=== PATIENT | male | born 1970 | race Caucasian/White ===

== ENCOUNTER 2018-09-01 10:14 | Emergency (ER) | payer MEDICAID ==
[~2018-09-01] VITALS: Ht 175.3 cm; Wt 90.0 kg
[2018-09-01 10:19] VITALS: Ht 175.3 cm; Wt 90.0 kg
[2018-09-01] MEDS ORDERED: CHLO25TA2 PO (11:38)
[2018-09-01] MEDS ORDERED: AMLO5TAB4 PO (11:38)
--- NOTE | 2018-09-01 11:56 | ERD ---
ER Documentation Chief Complaint Chief Complaint sent by pcp - kidney problem - lab work ; feels nauseous HPI 48-year-old male was referred to the emergency department after he had abnormal blood tests. According to the patient, routine blood tests demonstrated kidney problems. Patient has no specific complaints at this time including no shortness of breath, weakness or any other complaints. ROS All systems reviewed and are negative except as per history of present illness. Medications Home Meds Reported Medications Amlodipine Besylate* (Norvasc*) 5 Mg Tablet, 5 MG PO DAILY, TAB 09/01/18 Chlorthalidone* (Chlorthalidone*) 25 Mg Tablet, 25 MG PO DAILY, TAB 09/01/18 Allergies Allergies: Coded Allergies: No Known Allergy (Unverified , 09/25/14) PMhx/Soc History of Surgery: No Anesthesia Reaction: No Hx Neurological Disorder: No Hx Respiratory Disorders: No Hx Cardiac Disorders: No Hx Psychiatric Problems: No Hx Miscellaneous Medical Probl: No (NO KNOWN MEDICAL CONDITION) Hx Alcohol Use: Yes Hx Substance Use: No Hx Tobacco Use: No Smoking Status: Never smoker FmHx Noncontributory for chief complaint Physical Exam Vitals Vital Signs Date Temp Pulse Resp B/P (MAP) Pulse Ox O2 O2 Flow FiO2 Time Delivery Rate 09/01/18 99.1 99 19 193/122 98 10:19 (145) Physical Exam GENERAL: The patient is well developed and appropriate for usual state of health in no apparent distress HEENT: Pupils equal, round, and reactive to light. EOMI. There is no scleral icterus. NECK: C-spine is soft and supple, there is no meningismus. There is no cervical lymphadenopathy. LUNGS: Clear to auscultation bilaterally. There are no rales, wheezes or rhonchi. HEART: Regular rate and rhythm, no murmurs, clicks, rubs or gallops. ABDOMEN: Soft, non-tender, non-distended. There are bowel sounds in all four quadrants. No rebound or guarding. EXTREMITIES: There is no peripheral cyanosis or edema. No focal swelling or erythema. NEURO: The patient moves all four extremities with 5/5 strength. Cranial nerves II - XII are intact. Normal gait. Alert and oriented SKIN: There is no apparent rash or petechiae. HEME/LYMPHATIC: There is no evidence of excessive bruising or lymphedema. PSYCHIATRIC: The patient does not appear anxious or depressed. Result Diagram: 09/01/18 1055 09/01/18 1055 Results 24 hrs Laboratory Tests Test 09/01/18 10:55 09/01/18 11:00 White Blood Count 11.0 10^3/ul Red Blood Count 4.31 10^6/ul Hemoglobin 12.9 g/dl Hematocrit 37.6 % Mean Corpuscular Volume 87.2 fl Mean Corpuscular Hemoglobin 29.9 pg Mean Corpuscular Hemoglobin Concent 34.3 g/dl Red Cell Distribution Width 11.6 % Platelet Count 423 10^3/UL Mean Platelet Volume 9.0 fl Immature Granulocytes % 0.400 % Neutrophils % 76.2 % Lymphocytes % 10.6 % Monocytes % 7.7 % Eosinophils % 4.6 % Basophils % 0.5 % Nucleated Red Blood Cells % 0.0 /100WBC Immature Granulocytes # 0.040 10^3/ul Neutrophils # 8.4 10^3/ul Lymphocytes # 1.2 10^3/ul Monocytes # 0.9 10^3/ul Eosinophils # 0.5 10^3/ul Basophils # 0.1 10^3/ul Nucleated Red Blood Cells # 0.0 10^3/ul Sodium Level 142 mmol/L Potassium Level 3.5 mmol/L Chloride Level 96 mmol/L Carbon Dioxide Level 33 mmol/L Anion Gap 13 Blood Urea Nitrogen 41 mg/dl Creatinine 3.67 mg/dl Est Glomerular Filtrat Rate mL/min 18 mL/min Glucose Level 105 mg/dl Calcium Level 9.2 mg/dl Urine Color YELLOW Urine Clarity CLEAR Urine pH 7.0 Urine Specific [place] 1.012 Urine Ketones NEGATIVE mg/dL Urine Nitrite NEGATIVE mg/dL Urine Bilirubin NEGATIVE mg/dL Urine Urobilinogen NEGATIVE mg/dL Urine Leukocyte Esterase NEGATIVE Nanda/ul Urine Microscopic RBC > 182 /HPF Urine Microscopic WBC 15 /HPF Urine Bacteria FEW /HPF Urine Hemoglobin 3+ mg/dL Urine Glucose NEGATIVE mg/dL Urine Total Protein 3+ mg/dl Procedures/MDM Patient was taken to a room, seen and evaluated. Comfort measures were initiated. Diagnostic tests were ordered and reviewed. RADIOLOGY: [reviewed with the radiologist] REEVALUATION: 1155: Diagnostic tests were appreciated and discussed with the patient. Using a file clerk, I reviewed with the patient his need for follow- up. MEDICAL DECISION MAKIN-year-old male with a history of high blood pressure presents to the emergency department with kidney issues. At this time he shows evidence of what appears to be a nephritis, but no evidence of acute infection, hyperkalemia, fluid overload or need for dialysis. I expressed to the patient the need for a kidney biopsy to understand exactly why he has this. He otherwise appears to be clinically stable at this time and is appropriate for outpatient referral. Departure Diagnosis: Primary Impression: Nephritic syndrome Condition: Stable Patient Instructions: Kidney Problems Referrals: JOHANNA SALAS MD, BALBIR MD Additional Instructions: Consulte a simeon mdico para el seguimiento segn lo discutido. Lleve kenneth copia de los resultados de simeon prueba, si corresponde, a esta visita de seguimiento. Consulte a simeon mdico o regrese aqu si payton sntomas no mejoran caroline se esperaba. En cualquier momento, regrese al departamento de emergencias por cualquier cambio o empeoramiento en payton sntomas. NATE PARIKH Sep 01, 2018 11:56
[2018-09-01 12:00] VITALS: BP 172/99; PULSE 88; RESP 18
== END 2018-09-01 12:03 | disposition home or self-care (01) ==
LOC: E/R 10:14
DX: N05.9 Unspecified nephritic syndrome with unspecified morphologic changes (principal)
CPT/HCPCS: 36415; 76775; 80048; 81001; 85025; Z7502